=== PATIENT | female | born 1940 | race Caucasian/White ===

== ENCOUNTER 2022-03-05 13:18 | Emergency (ER) | payer OTHER ==
[2022-03-05 13:23] VITALS: BP 168/80; PULSE 100; RESP 18; TEMP 98.6; BMI 28.8
[2022-03-05] MEDS ORDERED: DIPHTH,PERTUSS(ACELL),TET 0.5 ML DISP.SYRIN IM ONE ×2 (14:12→14:23)
== END 2022-03-05 14:33 | disposition home or self-care (01) ==
LOC: JER 13:18 → JERFT 13:18
PROC: 0HQGXZZ Repair Left Hand Skin, External Approach (ICD-10-PCS; principal; 2022-03-05)
PROC: 3E0234Z Introduction of Serum, Toxoid and Vaccine into Muscle, Percutaneous Approach (ICD-10-PCS; 2022-03-05)
DX: S61.211A Laceration without foreign body of left index finger without damage to nail, initial encounter (principal); W26.0XXA Contact with knife, initial encounter
CPT/HCPCS: 90471; 90715; 99284-25